=== PATIENT | male | born 1965 | race Hispanic/Latino ===

== ENCOUNTER 2016-11-06 14:49 | Emergency (ER) | payer OTHER ==
[2016-11-06 15:01] VITALS: RESP 20; TEMP 98.4; O2SAT 99
--- NOTE | 2016-11-06 15:12 | ED PDOC ---
HPI: Eye Injury/Pain Time Seen by Provider: 11/06/16 15:10 Chief Complaint (Nursing): Eye Problem Chief Complaint (Provider): EYE IRRITATION History Per: Patient (51 Y/O MALE NOTES GREEN[place] MUCUSY DISCHARGED IN LEFT EYE COVERING CONTACT LENS TODAY. NOTES MODERATE PAIN BY EYE. UNSURE IF DIRT FLEW IN EYE YESTERDAY WHILE WORKING. TOOK OUT CONTACTS TODAY PRIOR TO ED ARRIVAL. PATIENT'S STATES SHE HAS ONGOING SWELLING IN LEFT EYE.) Past Medical History Reviewed: Historical Data, Nursing Documentation, Vital Signs Vital Signs: Last Vital Signs Temp 98.4 F 11/06/16 14:58 Pulse 110 H 11/06/16 14:58 Resp 20 11/06/16 14:58 BP 150/106 H 11/06/16 14:58 Pulse Ox 99 11/06/16 14:58 - Medical History PMH: HTN, Hypercholesterolemia, Hypothyroidism - Surgical History Surgical History: Coronary Stent (x3) - Family History Family History: States: No Known Family Hx - Home Medications Home Medications: Ambulatory Orders Medication Instructions Recorded Aspirin [Aspirin Chewable] 81 mg PO DAILY 02/09/16 Clindamycin [Cleocin] 300 mg PO TID #30 cap 02/09/16 Levothyroxine [Levoxyl] 0.15 mg PO DAILY 02/09/16 Ramipril [Altace] 5 mg PO DAILY 02/09/16 Simvastatin [Zocor] 40 mg PO DAILY 02/09/16 Sulfamethoxazole/Trimethoprim 1 tab PO BID #14 tab 02/09/16 [Bactrim DS 800 mg-160 mg] Cephalexin [cephalexin] 1 tab PO QID #28 cap 11/06/16 Erythromycin 0.5% [Ilytocin] 0.5 gm TOP BID #1 tube 11/06/16 - Allergies Allergies/Adverse Reactions: Allergies Allergy/AdvReac Type Severity Reaction Status Date / Time No Known Allergies Allergy Verified 09/07/15 10:20 Review of Systems ROS Statement: Except As Marked, All Systems Reviewed And Found Negative Eyes: Positive for: Other (STYE) Physical Exam - Reviewed Nursing Documentation Reviewed: Yes Vital Signs Reviewed: Yes (LEFT EYE 20/15;RIGHT 20/20; BOTH 20/13 WITH GLASSES) - Physical Exam Appears: Positive for: Well, Non-toxic, No Acute Distress Head Exam: Positive for: ATRAUMATIC, NORMAL INSPECTION, NORMOCEPHALIC Skin: Positive for: Normal Color, Warm, DRY Eye Exam: Positive for: Normal appearance, EOMI, PERRL, Other (ISAK NOTED LOWER EYELID. NO CONJUNCTIVAL INJECTION. NO FLUORESCEIN UPTAKE NOTED.) ENT: Positive for: Normal ENT Inspection Neck: Positive for: Normal, Painless ROM Cardiovascular/Chest: Positive for: Regular Rate, Rhythm Respiratory: Positive for: CNT, Normal Breath Sounds Gastrointestinal/Abdominal: Positive for: Normal Exam, Bowel Sounds, Soft Back: Positive for: Normal Inspection Extremity: Positive for: Normal ROM Neurologic/Psych: Positive for: Alert, Oriented - ECG O2 Sat by Pulse Oximetry: 99 Disposition - Clinical Impression Clinical Impression: Isak external - Patient ED Disposition Is Patient to be Admitted: No - Disposition Referrals: Piero Gardner MD [Staff Provider] - Disposition: Routine/Home Disposition Time: 15:16 Condition: FAIR Prescriptions: Cephalexin [cephalexin] 1 tab PO QID #28 cap Erythromycin 0.5% [Ilytocin] 0.5 gm TOP BID #1 tube Instructions: Isak (ED)
[2016-11-06 15:13] VITALS: BP 154/90; PULSE 90
== END 2016-11-06 15:48 | disposition home or self-care (01) ==
LOC: H.ER 14:49
DX: H00.014 Hordeolum externum left upper eyelid (principal); E03.9 Hypothyroidism, unspecified; E78.00 Pure hypercholesterolemia, unspecified; I10 Essential (primary) hypertension; Z79.82 Long term (current) use of aspirin; Z95.5 Presence of coronary angioplasty implant and graft

== ENCOUNTER 2017-02-09 18:06 | Emergency (ER) | payer SELFPAY ==
[2017-02-09 18:17] VITALS: BP 137/92; PULSE 100; RESP 20; TEMP 97.8; O2SAT 98
--- NOTE | 2017-02-09 18:55 | ED PDOC ---
HPI: Eye Injury/Pain Time Seen by Provider: 02/09/17 18:25 Chief Complaint (Nursing): Eye Problem Chief Complaint (Provider): eye pain History Per: Patient History/Exam Limitations: no limitations Additional Complaint(s): 51yo M in Ed for eval of right lower lid swelling-x2d hx of similar in past. admits to mild pain and FB sensation. admits to using contacts when lesion began. was able to remove contact lenses. no photophobia, drainage, bleeding from eye. Past Medical History Reviewed: Historical Data, Nursing Documentation, Vital Signs Vital Signs: Last Vital Signs Temp 97.8 F 02/09/17 18:15 Pulse 100 H 02/09/17 18:15 Resp 20 02/09/17 18:15 BP 137/92 H 02/09/17 18:15 Pulse Ox 98 02/09/17 18:15 - Medical History PMH: HTN, Hypercholesterolemia, Hypothyroidism - Surgical History Surgical History: Coronary Stent (x3) - Family History Family History: States: No Known Family Hx - Home Medications Home Medications: Ambulatory Orders Medication Instructions Recorded Aspirin [Aspirin Chewable] 81 mg PO DAILY 02/09/16 Clindamycin [Cleocin] 300 mg PO TID #30 cap 02/09/16 Levothyroxine [Levoxyl] 0.15 mg PO DAILY 02/09/16 Ramipril [Altace] 5 mg PO DAILY 02/09/16 Simvastatin [Zocor] 40 mg PO DAILY 02/09/16 Sulfamethoxazole/Trimethoprim 1 tab PO BID #14 tab 02/09/16 [Bactrim DS 800 mg-160 mg] Cephalexin [cephalexin] 1 tab PO QID #28 cap 11/06/16 Erythromycin 0.5% [Ilytocin] 0.5 gm TOP BID #1 tube 11/06/16 Cephalexin [cephalexin] 500 mg PO BID #20 cap 02/09/17 Erythromycin 0.5% [Erythromycin] 1 gm OP BID #1 tube 02/09/17 - Allergies Allergies/Adverse Reactions: Allergies Allergy/AdvReac Type Severity Reaction Status Date / Time No Known Allergies Allergy Verified 02/09/17 18:15 Review of Systems ROS Statement: Except As Marked, All Systems Reviewed And Found Negative Eyes: Positive for: Eyelid Inflammation. Negative for: Pain, Vision Change, Conjunctivae Inflammation, Redness Physical Exam - Reviewed Nursing Documentation Reviewed: Yes Vital Signs Reviewed: Yes - Physical Exam Appears: Positive for: Well, Non-toxic, No Acute Distress Skin: Positive for: Normal Color, Warm, DRY Eye Exam: Positive for: Normal appearance, EOMI, PERRL, Other (lower lid medial side swelling with white head tender. (-) flourscience uptake. no subconjtival hemmorrhage noted. ) Cardiovascular/Chest: Positive for: Regular Rate, Rhythm Respiratory: Positive for: CNT, Normal Breath Sounds Neurologic/Psych: Positive for: Alert, Oriented - ECG O2 Sat by Pulse Oximetry: 98 Medical Decision Making Medical Decision Making: dx: stye tx: warm compress, keflex and erythromycin oint f/u with pmd. Disposition - Clinical Impression Clinical Impression: Isak external - Patient ED Disposition Is Patient to be Admitted: No Counseled Patient/Family Regarding: Diagnosis, Need For Followup, Rx Given - Disposition Disposition: Routine/Home Disposition Time: 18:56 Condition: STABLE Prescriptions: Cephalexin [cephalexin] 500 mg PO BID #20 cap Erythromycin 0.5% [Erythromycin] 1 gm OP BID #1 tube Instructions: [facility] (ED) Forms: [employer] (Croatian)
== END 2017-02-09 18:50 | disposition home or self-care (01) ==
LOC: H.ER 18:06
DX: H00.011 Hordeolum externum right upper eyelid (principal); E03.9 Hypothyroidism, unspecified; I10 Essential (primary) hypertension; Z79.82 Long term (current) use of aspirin; Z95.5 Presence of coronary angioplasty implant and graft